=== PATIENT | male | born 1930 | race American Indian/Alaskan Native ===

== ENCOUNTER 2016-12-24 06:03 | Outpatient (CLI) | payer MEDICARE, OTHER ==
[2016-12-24 08:10] LABS: Blood Urea Nitrogen 15 mg/dL (9-20)
[2016-12-24] MEDS ORDERED: NACL ONE (08:15)
--- NOTE | 2016-12-24 09:09 | Cat Scan Report ---
CT scan of abdomen with IV contrast: History: Abdominal pain. Findings: Normal lung bases. No pleural pericardial effusion. As several circumscribed hypodensities liver probably cysts. Normal gallbladder. Pancreatic duct is visualized however no dilatation noted. No dilatation of intrahepatic ducts. No distinct mass is identified in the region of the pancreas. Spleen appears normal. Normal adrenals and kidneys. Grossly bowel gas pattern appears unremarkable. Appendix is visualized and appears normal. No evidence of adenopathy. Atherosclerotic abdominal aorta without aneurysm. Impression: Hypodensities liver probably cysts. Prominent pancreatic duct without definite mass. Clinical correlation is advised.
== END 2016-12-24 06:04 | disposition home or self-care (01) ==
LOC: CT 06:03
PROVIDERS: ATTEND Internal Medicine Hematology & Oncology
DX: R10.9 Unspecified abdominal pain (principal)
CPT/HCPCS: 36415; 74160; 82565; 84520; Q9967

== ENCOUNTER 2017-02-17 07:01 | Outpatient (CLI) | payer MEDICARE ==
[2017-02-17 07:40] LABS: Blood Urea Nitrogen 16 mg/dL (9-20)
--- NOTE | 2017-02-17 09:11 | Magnetic Resonance Report ---
MR ABDOMEN WITH AND WITHOUT CONTRAST HISTORY: Abnormal abdominal imaging, liver mass. FINDINGS: The CT abdomen with contrast performed 12/24/16 was reviewed. The liver is normal size, contour and signal. There are 4 tiny cysts scattered throughout the liver measuring less a 1 cm. No suspicious liver mass. Normal pancreas, spleen, kidneys and adrenal glands. The MRCP images demonstrate normal pancreaticobiliary tree. The bowel loops are within normal limits on MR. No evidence for ascites, inflammation or adenopathy. The aorta is normal caliber. Normal bony structures. No abnormal enhancement following IV gadolinium is demonstrated. IMPRESSION: Scattered liver cysts. No suspicious mass. Otherwise, unremarkable MR abdomen with and without contrast.
== END 2017-02-17 07:02 | disposition home or self-care (01) ==
LOC: MRI 07:01
PROVIDERS: ATTEND Internal Medicine
DX: K76.89 Other specified diseases of liver (principal); R93.5 Abnormal findings on diagnostic imaging of other abdominal regions, including retroperitoneum
CPT/HCPCS: 36415; 74183; 82565; 84520; A9577

== ENCOUNTER 2018-03-10 10:31 | Outpatient (CLI) | payer MEDICARE ==
--- NOTE | 2018-03-10 14:29 | Magnetic Resonance Report ---
FINAL REPORT PROCEDURE: MR BRAIN WO CON TECHNIQUE: Magnetic resonance imaging of the brain was performed without contrast material. HISTORY: PARESTHESIA OF SKIN COMPARISON: No prior studies are available for comparison. FINDINGS: There is no evidence of intracranial hemorrhage. No parenchymal hemorrhage, mass lesions or mass effect are identified. Small old lacunar infarct is seen in the right thalamus. There is mild increased T2 signal in the periventricular white matter and deep white matter. This is fairly symmetric and without mass effect. There is no restricted diffusion that would suggest an acute ischemic event. No abnormal extra-axial fluid collections or masses are seen. The ventricles, the sulcal pattern and fissures are prominent consistent with mild atrophy. The corpus callosum, the region of the pituitary fossa and the foramina magnum show no focal abnormalities. Mastoid air cells are clear. Visualized portions of the paranasal sinuses appear clear. Some of the sinuses are obscured by metallic artifact. IMPRESSION: There is evidence of mild atrophy and gliosis. 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 No acute intracranial abnormalities are identified.
== END 2018-03-10 10:32 | disposition home or self-care (01) ==
LOC: MRI 10:31
PROVIDERS: ATTEND Internal Medicine Hematology & Oncology
DX: G93.89 Other specified disorders of brain (principal); G31.9 Degenerative disease of nervous system, unspecified; R20.2 Paresthesia of skin; Z86.73 Personal history of transient ischemic attack (TIA), and cerebral infarction without residual deficits
CPT/HCPCS: 70551

== ENCOUNTER → 2018-07-04 | Outpatient (CLI) | payer MEDICARE ==
--- NOTE | 2018-07-05 08:43 | Magnetic Resonance Report ---
MRI THORACIC SPINE WITHOUT CONTRAST INDICATION: Paresthesia of skin. COMPARISON: None similar. FINDINGS: Noncontrast multiplanar and multisequence MRI of the thoracic spine demonstrates grossly normal intrinsic cord signal. Conus medullaris incompletely imaged, though may taper about L1. Normal thoracic vertebral body stature, alignment and marrow signal. Few mid thoracic endplate irregularities/Schmorl's nodes as measuring up to 0.9 cm along T8 superior endplate with possible adjacent sclerosis. Few disc bulges partially indenting the ventral CSF space noted as at T1-T2 and multiple mid to lower thoracic levels from T6 inferiorly, most pronounced at T8-T9 as on sagittal series 3, image 10 and axial series 6, image 29, minimally flattening the cord ventrally. As on axial image 37, right more than left facet arthropathy/ligamentous hypertrophy effaces the CSF posterolaterally with slight cord flattening at T10-T11. CONCLUSION: Multilevel degenerative changes noted, most pronounced at T8-T9 and T10-T11, as detailed above. Please correlate. Thank you for the opportunity to participate in this patient's care.
== END | disposition home or self-care (01) ==
LOC: MRI 13:38
PROVIDERS: ATTEND Internal Medicine Hematology & Oncology
DX: M47.894 Other spondylosis, thoracic region (principal); Z88.0 Allergy status to penicillin
CPT/HCPCS: 72146

== ENCOUNTER 2019-04-27 15:00 | Outpatient (CLI) | payer MEDICARE ==
--- NOTE | 2019-04-27 18:02 | XRay Report ---
PROCEDURE: XR CHEST ROUTINE 2V TECHNIQUE: PA and lateral chest radiographs were obtained. HISTORY: ROUTINE PHYSICAL COMPARISONS: None. FINDINGS: Heart: Normal. Mediastinum/Vessels: Mild unfolding of aorta is likely age-related.. Lungs/Pleural space: Several densities are present in the retrocardiac region probably in the left l ower lobe medially. These may represent calcifications related to granulomatous disease. CT the chest is recommended however.. Bony thorax: No acute osseous abnormality. IMPRESSION: Several densities in the left lower lobe medially are noted. CT is recommended. This document is electronically signed by Estelita Cedeño MD., April 27 2019 06:00:24 PM ET
== END 2019-04-27 15:01 | disposition home or self-care (01) ==
LOC: XRAY 15:00
PROVIDERS: ATTEND Internal Medicine Hematology & Oncology
DX: R05 Cough (principal)
CPT/HCPCS: 71046

== ENCOUNTER 2019-05-09 09:32 | Outpatient (CLI) | payer MEDICARE ==
[2019-05-09 10:13] LABS: Blood Urea Nitrogen 12 mg/dL (9-20)
--- NOTE | 2019-05-09 13:29 | Cat Scan Report ---
CT scan of chest with IV contrast: History: Under general symptoms and signs. Findings No endobronchial or mediastinal mass. No mediastinal hilar or axillary adenopathy. No pleural pericardial effusion. Bilateral minimal pleural thickening. No consolidation or mass. Impression: Bilateral pleural thickening. No definite consolidation or mass. Incidentally noted small hypodensities in the liver probably cysts.
== END 2019-05-09 09:33 | disposition home or self-care (01) ==
LOC: CT 09:32
PROVIDERS: ATTEND Internal Medicine Hematology & Oncology
DX: J92.9 Pleural plaque without asbestos (principal)
CPT/HCPCS: 36415; 71260; 82565; 84520; Q9967

== ENCOUNTER 2021-09-29 13:50 | Emergency (ER) | payer MEDICARE ==
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
[2021-09-29 14:58] VITALS: BP 123/73
--- NOTE | 2021-09-29 15:58 | Cat Scan Report ---
CT cervical spine wo con INDICATION: NECK INJURY. TECHNIQUE: Axial CT images of the cervical spine were obtained. Sagittal and coronal reformatted images were pro duced. All CT scans at this location are performed using CT dose reduction for ALARA by means of auto mated exposure control. COMPARISON: None available. FINDINGS: ALIGNMENT: Minimal degenerative anterolisthesis of C4 on C5, T1 on T2, and T2 on T3 VERTEBRAE: No fracture. Vertebral body heights are preserved. C1 and C2 are congruent. SPONDYLOSIS: No high-grade osseous spinal canal stenosis. Osseous foraminal narrowing most pronounce d at C3-C4 to C5-C6. SOFT TISSUES: No significant soft tissue abnormality. ADDITIONAL FINDINGS: Degenerative changes of the temporomandibular joints. IMPRESSION: 1. No fracture of the cervical spine. Signer Name: Mario Sloan MD Signed: 09/29/2021 3:54 PM Workstation Name: [id number]
== END 2021-09-29 16:21 | disposition home or self-care (01) ==
LOC: ED 13:50
DX: S16.1XXA Strain of muscle, fascia and tendon at neck level, initial encounter (principal); V49.49XA Driver injured in collision with other motor vehicles in traffic accident, initial encounter; Y93.89 Activity, other specified; Y92.89 Other specified places as the place of occurrence of the external cause; Y99.8 Other external cause status
CPT/HCPCS: 72125; 99283